=== PATIENT | male | born 1990 | race Caucasian/White ===

== ENCOUNTER 2018-11-26 13:15 | Emergency (ER) | payer MEDICAID ==
[~2018-11-26] VITALS: Ht 177.8 cm; Wt 63.6 kg
[~2018-11-26 13:15] MED LIST: CLIN-96 PO; METO-292 PO; PANT-47 PO
[2018-11-26] MEDS ORDERED: ketorolac trometh. 30mg/ml inj. IV ONE (13:30)
[2018-11-26] MEDS ORDERED: ondansetron/PF 4mg/2ml inj IV ONE (13:30)
[2018-11-26] MEDS ORDERED: normal saline 1000ML IV soln IVB ONE (13:30)
[2018-11-26 13:51] LABS: BASOPHILS # (AUTO) 0.1 X10'3 (0-0.2); BASOPHILS % (AUTO) 0.8 % (0-1); EOSINOPHILS # (AUTO) 0.1 X10'3 (0-0.9); EOSINOPHILS % (AUTO) 1.8 % (0-6); HEMATOCRIT 38.2 % (42.0-52.0); HEMOGLOBIN 12.5 g/dl (14.0-17.9); LYMPHOCYTES # (AUTO) 0.4 X10'3 (1.1-4.8); LYMPHOCYTES % (AUTO) 5.3 % (21-51); MEAN CORPUSCULAR HEMOGLOBIN 28.4 PG (27.0-31.0); MEAN CORPUSCULAR HGB CONC 32.6 g/dL (33.0-36.5); MEAN CORPUSCULAR VOLUME 87.1 FL (78-98); MEAN PLATELET VOLUME 7.2 FL (7.4-10.4); MONOCYTES # (AUTO) 0.4 X10'3 (0-0.9); MONOCYTES % (AUTO) 6.1 % (2-12); NEUTROPHILS # (AUTO) 6.3 X10'3 (1.8-7.7); PLATELET COUNT 230 X10'3 (140-440); RED BLOOD COUNT 4.39 X10'6 (4.70-6.10); WHITE BLOOD COUNT 7.4 X10'3 (4.5-11.0)
[2018-11-26 14:07] LABS: ALANINE AMINOTRANSFERASE 29 U/L (12-78); ALBUMIN 2.9 G/DL (3.4-5.0); ALBUMIN/GLOBULIN RATIO 0.9 (1.1-1.5); ALKALINE PHOSPHATASE 62 IU/L (46-116); ANION GAP 5 (8-16); ASPARTATE AMINO TRANSFERASE 19 U/L (10-37); BILIRUBIN,TOTAL 0.5 MG/DL (0.1-1.0); BLOOD UREA NITROGEN 11 MG/DL (7-18); BUN/CREATININE RATIO 17.5 (5.4-32.0); CALCIUM 8.1 MG/DL (8.5-10.1); CHLORIDE 108 MMOL/L (99-107); CREATININE 0.63 MG/DL (0.60-1.10); GLUCOSE 86 MG/DL (70-104); LIPASE 68 U/L (73-393); POTASSIUM 4.1 MMOL/L (3.5-5.1); SODIUM 141 MMOL/L (135-145); TOTAL CARBON DIOXIDE 27.7 MMOL/L (24-32); eGFR > 90 ML/MIN
[2018-11-26 14:33] LABS: CLARITY,URINE CLEAR (Clear); COLOR,URINE YELLOW (Yellow); GLUCOSE, URINE NEGATIVE (Neg); KETONES,URINE NEGATIVE (Neg); LEUKOCYTE ESTERASE ,URINE NEGATIVE (Neg); NITRITES, URINE NEGATIVE (Neg); OCCULT BLOOD,URINE NEGATIVE (Neg); PROTEIN,URINE NEGATIVE (Neg); UROBILINOGEN,URINE 0.2 E.U/dL (0.2-1.0)
[2018-11-26 14:37] LABS: UA COLLECTION TYPE URINAL
[2018-11-26 15:47] VITALS: BP 115/68
== END 2018-11-26 15:53 | disposition home or self-care (01) ==
LOC: ER 13:15
DX: R11.2 Nausea with vomiting, unspecified (principal); R10.11 Right upper quadrant pain; R10.31 Right lower quadrant pain; R10.32 Left lower quadrant pain; R39.15 Urgency of urination; F15.90 Other stimulant use, unspecified, uncomplicated; F12.90 Cannabis use, unspecified, uncomplicated; F17.200 Nicotine dependence, unspecified, uncomplicated; Z79.2 Long term (current) use of antibiotics; Z79.899 Other long term (current) drug therapy; Z90.49 Acquired absence of other specified parts of digestive tract; Z60.2 Problems related to living alone
CPT/HCPCS: 36415; 80053; 81003; 83690; 85025; 96361; 96374; 96375; 99283; J1885; J2405; J7030

== ENCOUNTER 2018-12-02 22:13 | Emergency (ER) | payer MEDICAID ==
[~2018-12-02] VITALS: Ht 177.8 cm; Wt 63.6 kg
[2018-12-02 23:18] LABS: BASOPHILS # (AUTO) 0.1 X10'3 (0-0.2); BASOPHILS % (AUTO) 1.5 % (0-1); EOSINOPHILS # (AUTO) 0.4 X10'3 (0-0.9); EOSINOPHILS % (AUTO) 6.5 % (0-6); HEMATOCRIT 35.6 % (42.0-52.0); HEMOGLOBIN 12.1 g/dl (14.0-17.9); LYMPHOCYTES # (AUTO) 2.2 X10'3 (1.1-4.8); LYMPHOCYTES % (AUTO) 32.9 % (21-51); MEAN CORPUSCULAR HEMOGLOBIN 28.8 PG (27.0-31.0); MEAN CORPUSCULAR VOLUME 84.8 FL (78-98); MEAN PLATELET VOLUME 7.7 FL (7.4-10.4); MONOCYTES # (AUTO) 0.7 X10'3 (0-0.9); MONOCYTES % (AUTO) 10.7 % (2-12); NEUTROPHILS # (AUTO) 3.2 X10'3 (1.8-7.7); NEUTROPHILS % (AUTO) 48.4 % (42-75); PLATELET COUNT 264 X10'3 (140-440); RED CELL DISTRIBUTION WIDTH 13.6 % (11.5-14.5); WHITE BLOOD COUNT 6.6 X10'3 (4.5-11.0)
[2018-12-02 23:24] LABS: ALANINE AMINOTRANSFERASE 33 U/L (12-78); ALBUMIN 3.4 G/DL (3.4-5.0); ALBUMIN/GLOBULIN RATIO 1.1 (1.1-1.5); ALKALINE PHOSPHATASE 91 IU/L (46-116); ANION GAP 5 (8-16); ASPARTATE AMINO TRANSFERASE 20 U/L (10-37); BILIRUBIN,TOTAL 0.3 MG/DL (0.1-1.0); BLOOD UREA NITROGEN 11 MG/DL (7-18); BUN/CREATININE RATIO 13.1 (5.4-32.0); CALCIUM 8.6 MG/DL (8.5-10.1); CHLORIDE 108 MMOL/L (99-107); CREATININE 0.84 MG/DL (0.60-1.10); GLUCOSE 86 MG/DL (70-104); POTASSIUM 3.3 MMOL/L (3.5-5.1); SODIUM 143 MMOL/L (135-145); TOTAL CARBON DIOXIDE 29.6 MMOL/L (24-32); TOTAL PROTEIN 6.4 G/DL (6.4-8.2); eGFR > 90 ML/MIN
[2018-12-02 23:29] LABS: CLARITY,URINE CLOUDY (Clear); COLOR,URINE RED (Yellow)
[2018-12-02 23:30] LABS: UA COLLECTION TYPE VOIDED
[2018-12-02 23:41] LABS: BACTERIA,URINE FEW /HPF (Neg); RBC,URINE TNTC /HPF (0-2)
[2018-12-02 23:42] LABS: CAL OXALATE CRYSTALS FEW /HPF (NEGATIVE); MUCUS STRANDS FEW /LPF (Neg); SQUAMOUS EPITHELIAL CELL,UR FEW /LPF (FEW)
[2018-12-03 01:18] VITALS: BP 114/64
== END 2018-12-03 02:37 | disposition home or self-care (01) ==
LOC: ER 22:14
DX: R31.0 Gross hematuria (principal); F12.90 Cannabis use, unspecified, uncomplicated; F15.90 Other stimulant use, unspecified, uncomplicated; F11.90 Opioid use, unspecified, uncomplicated; Z90.49 Acquired absence of other specified parts of digestive tract; Z79.899 Other long term (current) drug therapy; Z60.2 Problems related to living alone
CPT/HCPCS: 36415; 74176; 80053; 81001; 85025; 85610; 87088; 99284

== ENCOUNTER 2019-06-12 14:12 | Emergency (ER) | payer MEDICAID ==
[~2019-06-12] VITALS: Ht 177.8 cm; Wt 65.9 kg
[~2019-06-12 14:12] MED LIST changes: +CLIN-90 PO; -CLIN-96 PO
[2019-06-12] MEDS ORDERED: ondansetron 4mg rapidly disintigrating tab PO STA (14:24)
[2019-06-12] MEDS ORDERED: pantoprazole 40mg Tablet.DR PO ONE (14:25)
[2019-06-12] MEDS ORDERED: LIDOcaine Viscous 15ml cup MM ONE (14:25)
[2019-06-12] MEDS ORDERED: mag hydrox/Alum hydrox/simeth 30ml oral suspension PO ONE (14:25)
[2019-06-12] MEDS ORDERED: sucralfate 1 gm tablet PO ONE (14:25)
[2019-06-12] MEDS ORDERED: ketorolac tromethamine 15mg/ml inj. IM ONE (14:45)
[2019-06-12] MEDS ORDERED: ketorolac trometh. 30mg/ml inj. IM ONE (14:45)
[2019-06-12 14:46] LABS: BASOPHILS # (AUTO) 0.1 X10'3 (0-0.2); BASOPHILS % (AUTO) 0.8 % (0-1); EOSINOPHILS # (AUTO) 0.3 X10'3 (0-0.9); EOSINOPHILS % (AUTO) 3.6 % (0-6); HEMATOCRIT 43.4 % (42.0-52.0); HEMOGLOBIN 14.7 g/dl (14.0-17.9); LYMPHOCYTES # (AUTO) 1.6 X10'3 (1.1-4.8); LYMPHOCYTES % (AUTO) 20.2 % (21-51); MEAN CORPUSCULAR HEMOGLOBIN 28.9 PG (27.0-31.0); MEAN CORPUSCULAR VOLUME 85.1 FL (78-98); MEAN PLATELET VOLUME 7.5 FL (7.4-10.4); MONOCYTES # (AUTO) 0.9 X10'3 (0-0.9); MONOCYTES % (AUTO) 11.4 % (2-12); NEUTROPHILS # (AUTO) 5.1 X10'3 (1.8-7.7); PLATELET COUNT 284 X10'3 (140-440); RED CELL DISTRIBUTION WIDTH 13.6 % (11.5-14.5)
[2019-06-12] MEDS ORDERED: normal saline 1000ml 1,000 ML IV ONE (14:55)
[2019-06-12 14:58] LABS: CLARITY,URINE CLEAR (Clear); COLOR,URINE YELLOW (Yellow); GLUCOSE, URINE NEGATIVE (Neg); KETONES,URINE NEGATIVE (Neg); LEUKOCYTE ESTERASE ,URINE NEGATIVE (Neg); NITRITES, URINE NEGATIVE (Neg); OCCULT BLOOD,URINE NEGATIVE (Neg); PROTEIN,URINE NEGATIVE (Neg); UROBILINOGEN,URINE 0.2 E.U/dL (0.2-1.0)
[2019-06-12 15:00] LABS: GLUCOSE 85 MG/DL (70-104); POTASSIUM 4.1 MMOL/L (3.5-5.1); SODIUM 142 MMOL/L (135-145)
[2019-06-12 15:01] LABS: ALANINE AMINOTRANSFERASE 28 U/L (12-78); ALBUMIN/GLOBULIN RATIO 1.3 (1.1-1.5); ALKALINE PHOSPHATASE 75 IU/L (46-116); ANION GAP 8 (8-16); ASPARTATE AMINO TRANSFERASE 25 U/L (10-37); BILIRUBIN,TOTAL 0.6 MG/DL (0.1-1.0); BLOOD UREA NITROGEN 11 MG/DL (7-18); BUN/CREATININE RATIO 14.9 (5.4-32.0); CALCIUM 8.8 MG/DL (8.5-10.1); CHLORIDE 106 MMOL/L (99-107); CREATININE 0.74 MG/DL (0.60-1.10); LIPASE 111 U/L (73-393); TOTAL CARBON DIOXIDE 28.4 MMOL/L (24-32); TOTAL PROTEIN 7.2 G/DL (6.4-8.2); eGFR > 90 ML/MIN
[2019-06-12 15:03] LABS: UA COLLECTION TYPE CLN CATCH MIDSTREAM
[2019-06-12] MEDS ORDERED: ESOM40CA49 PO (15:21)
[2019-06-12 15:30] VITALS: BP 117/67
== END 2019-06-12 15:39 | disposition home or self-care (01) ==
LOC: ER 14:12
DX: K29.00 Acute gastritis without bleeding (principal); F12.90 Cannabis use, unspecified, uncomplicated; F15.90 Other stimulant use, unspecified, uncomplicated; F11.90 Opioid use, unspecified, uncomplicated; Z90.49 Acquired absence of other specified parts of digestive tract; Z60.2 Problems related to living alone; Z79.2 Long term (current) use of antibiotics; Z79.899 Other long term (current) drug therapy
CPT/HCPCS: 36415; 80053; 81003; 83690; 85025; 96360; 96372; 99283; J1885; J7030

== ENCOUNTER 2020-07-21 00:18 | Emergency (ER) | payer MEDICAID ==
[~2020-07-21] VITALS: Ht 177.8 cm; Wt 63.6 kg
[~2020-07-21 00:18] MED LIST changes: -CLIN-90 PO; +CLIN-97 PO; +ESOM40CA49 PO
[2020-07-21 00:28] VITALS: BP 136/84
[2020-07-21] MEDS ORDERED: HYDROcodone/acetaminophen 10/325mg tab PO ONE (02:20)
[2020-07-21] MEDS ORDERED: amox tr/potassium clavulanate 875/125mg TAB PO ONE (02:20)
[2020-07-21] MEDS ORDERED: naproxen 500mg tablet PO ONE (02:20)
[2020-07-21] MEDS ORDERED: AMOX-117 PO (02:27)
[2020-07-21] MEDS ORDERED: HYDR-3965 PO (02:27)
[2020-07-21] MEDS ORDERED: NAPR-56 PO (02:27)
== END 2020-07-21 02:33 | disposition home or self-care (01) ==
LOC: ER 00:19
DX: K04.7 Periapical abscess without sinus (principal); K02.9 Dental caries, unspecified; K08.89 Other specified disorders of teeth and supporting structures; F17.200 Nicotine dependence, unspecified, uncomplicated; F12.90 Cannabis use, unspecified, uncomplicated; F15.90 Other stimulant use, unspecified, uncomplicated; F11.90 Opioid use, unspecified, uncomplicated; Z90.89 Acquired absence of other organs; Z60.2 Problems related to living alone; Z79.2 Long term (current) use of antibiotics; Z79.899 Other long term (current) drug therapy
CPT/HCPCS: 99284

== ENCOUNTER 2020-09-20 00:51 | Emergency (ER) | payer MEDICAID ==
[~2020-09-20] VITALS: Ht 177.8 cm; Wt 63.6 kg
[~2020-09-20 00:51] MED LIST changes: +HYDR-3972 PO
[2020-09-20] MEDS ORDERED: acetaminophen 325mg tablet PO ONE (01:55)
[2020-09-20 02:46] VITALS: BP 137/85
[2020-09-21] MEDS ORDERED: SERT-153 PO (10:45)
== END 2020-09-20 02:48 | disposition home or self-care (01) ==
LOC: ER 00:52
DX: S40.012A Contusion of left shoulder, initial encounter (principal); F12.90 Cannabis use, unspecified, uncomplicated; F15.90 Other stimulant use, unspecified, uncomplicated; F11.90 Opioid use, unspecified, uncomplicated; Z90.49 Acquired absence of other specified parts of digestive tract; Z60.2 Problems related to living alone; Z79.899 Other long term (current) drug therapy; X58.XXXA Exposure to other specified factors, initial encounter; Y93.89 Activity, other specified; Y92.89 Other specified places as the place of occurrence of the external cause; Y99.8 Other external cause status
CPT/HCPCS: 73000; 99283

== ENCOUNTER 2020-09-22 10:47 | Day surgery (SDC) | payer MEDICAID ==
[~2020-09-22] VITALS: Ht 177.8 cm; Wt 61.5 kg
[2020-09-22] VITALS (13 sets, daily range): BP systolic 124–162; BP diastolic 78–105
[~2020-09-22 10:47] MED LIST changes: -CLIN-97 PO; -ESOM40CA49 PO; -HYDR-3972 PO; -METO-292 PO; -PANT-47 PO; +SERT-153 PO; +albuterol 2.5 MG/3 ML nebule NEB ONE; +famotidine 20mg tablet PO ONE; +ringers solution, lacted 1,000 ML IV SCH
[2020-09-22] MEDS ORDERED: BUPIVAcaine/PF 2.5 mg/ml (0.25%) 30ml vial ONE (11:28)
[2020-09-22] MEDS ORDERED: cloNIDine hcl/PF 100mcg/ml inj ONE (11:38)
[2020-09-22] MEDS ORDERED: fentaNYL/PF 50MCG/1 ML 2ML syringe ONE (11:42)
[2020-09-22] MEDS ORDERED: MIDAZolam 1 MG/ML 5ML VIAL ONE (11:47)
[2020-09-22] MEDS ORDERED: morphine 4 MG/ML inj SYRINge IV PRN (11:55)
[2020-09-22] MEDS ORDERED: ondansetron/PF 4mg/2ml inj IV PRN (11:55)
[2020-09-22] MEDS ORDERED: morphine 2 MG/ML inj. syringe IV PRN (11:55)
[2020-09-22] MEDS ORDERED: ringers solution, lacted 1,000 ML IV SCH (11:55)
[2020-09-22] MEDS ORDERED: HYDROmorphone/PF 0.2 MG/ML SYRINGE IV PRN ×2 (11:55)
[2020-09-22] MEDS ORDERED: proCHLORperazine 10 MG/2 ml inj IV PRN (11:55)
[2020-09-22] MEDS ORDERED: labetalol 20mg/4ml (5mg/ml) syringe IV PRN (11:55)
[2020-09-22] MEDS ORDERED: acetaminophen 1,000mg/100ml IV 100 ML IV PRN (11:55)
[2020-09-22] MEDS ORDERED: meperidine/PF 25mg/ml syringe IV PRN (11:55)
[2020-09-22] MEDS ORDERED: hydrALAZINE 20mg/ml inj. IV PRN (11:55)
[2020-09-22] MEDS ORDERED: cefazolin/dext.iso 2gm/100ml 100 ML IV ONE (12:00)
[2020-09-22] MEDS ORDERED: LIDOcaine 2% (20mg/ml) 5ml vial ONE (12:33)
[2020-09-22] MEDS ORDERED: rocuronium 10mg/ml inj IV ONE (12:33)
[2020-09-22] MEDS ORDERED: ROPIVAcaine 0.5% (5mg/ml) 30ml vial ONE (12:33)
[2020-09-22] MEDS ORDERED: propofol inj 20 ML IV ONE (12:33)
[2020-09-22] MEDS ORDERED: dexamethasone sod phosphate 4mg/ml inj. ONE (12:34)
[2020-09-22] MEDS ORDERED: ondansetron/PF 4mg/2ml inj ONE (12:34)
[2020-09-22] MEDS ORDERED: LIDOcaine 1%/PF 5ML 10 MG/ML VIAL ONE (12:34)
[2020-09-22] MEDS ORDERED: glycopyrrolate 0.2mg/ml inj ONE (13:01)
[2020-09-22] MEDS ORDERED: neostigmine methylsulfate 1 MG/ML 10ml vial ONE (13:01)
--- NOTE | 2020-09-22 13:17 | NUR ---
Received from OR via [facility] , accompanied by Anesthesiologist AISLINN and report given by Anesthesiolgist. PT WITH DRY CLEAN DRESSING TO L CLAVICAL. NO DRAINAGE. DISTAL PULSES PRESENT BILATERALLY STRONG REGULAR. L ARM IN SLING. IV 20GA R HAND WITH LR 100ML/HR. RR 16 NON-LABORED WITH O2 3LPM SIMPLE MASK. PAIN 3/10 TO L CLAVICULAR AREA. NSR ON CM. Addendum: 09/22/20 at 1345 by Jairo Thurston RN, RN Amended: Links added.
--- NOTE | 2020-09-22 15:07 | NUR ---
ALL DC CRITERIA FOR DISCHARGE HOME HAS BEEN MET. IV OUT WITHOUT COMPLICATIONS. PAIN AT A 07/27 AT THIS TIME. DONNED RIB BELT TO ASSIST IN IMMOBILIZING LEFT UE 2' PATIENT REQUEST. MD SUMMERS CALLED REGARDING PAIN MEDICATIONS. STATES HE WILL REORDER IF NEEDED. OUT VIA WHEELCHAIR TO PERSONAL VEHICLE WHERE HIS FATHER DROVE HIM HOME. Addendum: 09/22/20 at 1528 by Jairo Thurston RN, RN Amended: Links added.
--- NOTE | 2020-09-22 15:07 | NUR ---
MD SUMMERS TO CALL IN MORE PAIN MEDS IF NECESSARY Addendum: 09/22/20 at 1531 by Jairo Thurston RN, RN Amended: Links added.
== END 2020-09-22 15:07 | disposition home or self-care (01) ==
LOC: PAS 10:47
PROVIDERS: ATTEND Orthopaedic Surgery
DX: S42.022A Displaced fracture of shaft of left clavicle, initial encounter for closed fracture (principal); J45.909 Unspecified asthma, uncomplicated; G89.18 Other acute postprocedural pain; F17.210 Nicotine dependence, cigarettes, uncomplicated; Z72.89 Other problems related to lifestyle; Z98.890 Other specified postprocedural states; Z86.73 Personal history of transient ischemic attack (TIA), and cerebral infarction without residual deficits; Z79.899 Other long term (current) drug therapy; Z20.822 Contact with and (suspected) exposure to COVID-19; W19.XXXA Unspecified fall, initial encounter; Y93.89 Activity, other specified; Y92.89 Other specified places as the place of occurrence of the external cause; Y99.8 Other external cause status
CPT/HCPCS: 23515; 36415; 64415; 64999; 73000; 76000; 76942; 82948; 87426; 94640; 94760; C1713; J0735; J1100; J2001; J2250; J2405; J2704; J2710; J3010; J3490; A4565; A4618; A6449; A7000; J2795; J7120

== ENCOUNTER 2021-03-01 22:49 | Emergency (ER) | payer MEDICAID ==
[~2021-03-01] VITALS: Ht 180.3 cm; Wt 60.5 kg
[~2021-03-01 22:49] MED LIST changes: -albuterol 2.5 MG/3 ML nebule NEB ONE; -famotidine 20mg tablet PO ONE; -ringers solution, lacted 1,000 ML IV SCH
[2021-03-01] MEDS ORDERED: HYDROcodone/acetaminophen 5mg/325mg tablet PO ONE (23:25)
[2021-03-01] MEDS ORDERED: normal saline 1000ml 1,000 ML IV ONE (23:40)
[2021-03-01] MEDS ORDERED: clindamycin 600mg/D5W 50ml 50 ML IV ONE (23:40)
[2021-03-01] MEDS ORDERED: morphine 4 MG/ML inj SYRINge IV ONE (23:40)
[2021-03-02 00:01] LABS: BASOPHILS % (AUTO) 0.3 % (0-1); EOSINOPHILS % (AUTO) 0.2 % (0-6); HEMATOCRIT 40.1 % (42.0-52.0); HEMOGLOBIN 13.8 g/dl (14.0-17.9); LYMPHOCYTES # (AUTO) 0.8 X10'3 (1.1-4.8); LYMPHOCYTES % (AUTO) 7.2 % (21-51); MEAN CORPUSCULAR HGB CONC 34.5 g/dL (33.0-36.5); MEAN PLATELET VOLUME 8.3 FL (7.4-10.4); MONOCYTES % (AUTO) 8.5 % (2-12); NEUTROPHILS # (AUTO) 9.5 X10'3 (1.8-7.7); NEUTROPHILS % (AUTO) 83.8 % (42-75); PLATELET COUNT 245 X10'3 (140-440); RED BLOOD COUNT 4.61 X10'6 (4.70-6.10); RED CELL DISTRIBUTION WIDTH 13.1 % (11.5-14.5); WHITE BLOOD COUNT 11.3 X10'3 (4.5-11.0)
[2021-03-02 00:16] LABS: ALANINE AMINOTRANSFERASE 23 U/L (12-78); ALBUMIN 3.9 G/DL (3.4-5.0); ALBUMIN/GLOBULIN RATIO 1.3 (1.1-1.5); ALKALINE PHOSPHATASE 62 IU/L (46-116); ANION GAP 7 (8-16); ASPARTATE AMINO TRANSFERASE 16 U/L (10-37); BILIRUBIN,TOTAL 0.6 MG/DL (0.1-1.0); BLOOD UREA NITROGEN 14 MG/DL (7-18); BUN/CREATININE RATIO 16.7 (5.4-32.0); CALCIUM 9.5 MG/DL (8.5-10.1); CHLORIDE 104 MMOL/L (99-107); CREATININE 0.84 MG/DL (0.60-1.10); GLUCOSE 114 MG/DL (70-104); SODIUM 139 MMOL/L (135-145); TOTAL CARBON DIOXIDE 27.7 MMOL/L (24-32); eGFR > 90 ML/MIN
[2021-03-02] MEDS ORDERED: HYDR-3965 PO (00:53)
[2021-03-02 01:18] VITALS: BP 124/75
== END 2021-03-02 01:19 | disposition home or self-care (01) ==
LOC: ER 22:50
DX: K04.7 Periapical abscess without sinus (principal); F17.210 Nicotine dependence, cigarettes, uncomplicated; F12.10 Cannabis abuse, uncomplicated; F15.10 Other stimulant abuse, uncomplicated; Z79.899 Other long term (current) drug therapy
CPT/HCPCS: 36415; 80053; 83605; 84145; 85025; 87040; 96365; 96375; 99284; J2270; J7030; J3490

== ENCOUNTER 2021-05-10 03:14 | Emergency (ER) | payer MEDICAID ==
[~2021-05-10] VITALS: Ht 177.8 cm; Wt 61.4 kg
[2021-05-10 03:48] LABS: BASOPHILS # (AUTO) 0.1 X10'3 (0-0.2); EOSINOPHILS # (AUTO) 0.4 X10'3 (0-0.9); EOSINOPHILS % (AUTO) 4.2 % (0-6); HEMATOCRIT 44.3 % (42.0-52.0); HEMOGLOBIN 15.2 g/dl (14.0-17.9); LYMPHOCYTES % (AUTO) 30.5 % (21-51); MEAN CORPUSCULAR HEMOGLOBIN 29.9 PG (27.0-31.0); MEAN CORPUSCULAR HGB CONC 34.4 g/dL (33.0-36.5); MEAN CORPUSCULAR VOLUME 86.8 FL (78-98); MEAN PLATELET VOLUME 7.8 FL (7.4-10.4); MONOCYTES # (AUTO) 0.9 X10'3 (0-0.9); MONOCYTES % (AUTO) 9.3 % (2-12); NEUTROPHILS # (AUTO) 5.5 X10'3 (1.8-7.7); PLATELET COUNT 298 X10'3 (140-440); RED CELL DISTRIBUTION WIDTH 12.7 % (11.5-14.5)
[2021-05-10 04:02] LABS: ALANINE AMINOTRANSFERASE 31 U/L (12-78); ALBUMIN 4.1 G/DL (3.4-5.0); ALBUMIN/GLOBULIN RATIO 1.2 (1.1-1.5); ALKALINE PHOSPHATASE 70 IU/L (46-116); ANION GAP 11 (8-16); ASPARTATE AMINO TRANSFERASE 22 U/L (10-37); BILIRUBIN,TOTAL 0.4 MG/DL (0.1-1.0); BLOOD UREA NITROGEN 19 MG/DL (7-18); BUN/CREATININE RATIO 18.4 (5.4-32.0); CALCIUM 9.4 MG/DL (8.5-10.1); CHLORIDE 103 MMOL/L (99-107); CREATININE 1.03 MG/DL (0.60-1.10); GLUCOSE 110 MG/DL (70-104); POTASSIUM 3.7 MMOL/L (3.5-5.1); SODIUM 140 MMOL/L (135-145); TOTAL CARBON DIOXIDE 26.2 MMOL/L (24-32); TOTAL PROTEIN 7.5 G/DL (6.4-8.2); eGFR 85 ML/MIN
[2021-05-10 04:04] LABS: D-DIMER < 0.19 MG/L FEU (0-0.50)
[2021-05-10 04:56] VITALS: BP 141/74
== END 2021-05-10 04:58 | disposition home or self-care (01) ==
LOC: ER 03:15
DX: R04.2 Hemoptysis (principal); Z20.822 Contact with and (suspected) exposure to COVID-19; R09.89 Other specified symptoms and signs involving the circulatory and respiratory systems; R05.9 Cough, unspecified; F12.90 Cannabis use, unspecified, uncomplicated; F15.90 Other stimulant use, unspecified, uncomplicated; Z90.89 Acquired absence of other organs; Z98.890 Other specified postprocedural states; Z59.00 Homelessness unspecified; Z79.899 Other long term (current) drug therapy
CPT/HCPCS: 36415; 71045; 80053; 83880; 84484; 85025; 85379; 87635; 93005; 99285; C9803

== ENCOUNTER 2021-05-26 04:10 | Emergency (ER) | payer MEDICAID ==
[~2021-05-26] VITALS: Ht 177.8 cm; Wt 63.5 kg
[2021-05-26 04:30] VITALS: BP 105/62
== END 2021-05-26 10:00 | disposition left against medical advice (07) ==
LOC: ER 04:11
DX: R07.89 Other chest pain (principal); Z53.21 Procedure and treatment not carried out due to patient leaving prior to being seen by health care provider
CPT/HCPCS: 93005